=== PATIENT | female | born 1970 | race Caucasian/White ===

== ENCOUNTER 2018-02-07 19:10 | Emergency (ER) | payer OTHER ==
[~2018-02-07] VITALS: Ht 167.6 cm; Wt 72.6 kg
[2018-02-07] MEDS ORDERED: HYDROcodone/APAP 7.5 MG/325 MG (LORTAB, LORCET PLUS) TABLET PO STA (21:55)
[2018-02-07 22:52] LABS: BASOPHILS # (AUTO) 0.1 10^3/uL (0.0-0.1); BASOPHILS % (AUTO) 1 % (0-10); EOSINOPHILS # (AUTO) 0.4 10^3/uL (0.0-0.3); EOSINOPHILS % (AUTO) 4 % (0-10); HEMATOCRIT 42 % (35-52); HEMOGLOBIN 14.4 G/DL (11.5-16.0); LYMPHOCYTES # (AUTO) 4.6 X 10^3 (1.0-4.0); LYMPHOCYTES % (AUTO) 43 % (12-44); MEAN CORPUSCULAR HEMOGLOBIN 31 PG (25-34); MEAN CORPUSCULAR HGB CONC 35 G/DL (32-36); MEAN CORPUSCULAR VOLUME 90 FL (80-99); MEAN PLATELET VOLUME 10.4 FL (7.4-10.4); MONOCYTES % (AUTO) 9 % (0-12); NEUTROPHILS # (AUTO) 4.8 X 10^3 (1.8-7.8); NEUTROPHILS % (AUTO) 44 % (42-75); PLATELET COUNT 242 10^3/uL (130-400); RED BLOOD COUNT 4.65 10^6/uL (4.35-5.85); RED CELL DISTRIBUTION WIDTH 12.8 % (10.0-14.5); WHITE BLOOD COUNT 10.8 10^3/uL (4.3-11.0)
--- NOTE | 2018-02-07 23:05 | ED General ---
General Chief Complaint: General Problems/Pain Stated Complaint: BREAST PAIN Nursing Triage Note: c/o L breast pain x 2 days Nursing Sepsis Screen: No Definite Risk History of Present Illness Date Seen by Provider: Feb 07, 2018 Time Seen by Provider: 21:30 Initial Comments 47-year-old female reports since for left breast pain. She states the pain has been present for at least 3 days now. She has not had a mammogram for approximately 4-5 years. She slipped in [place] for the last year prior to that she lived in [facility]. 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 This was done approximately 5 years ago. She has no first-degree relatives with breast cancer. She has a [id number] smoking history. She does report a proximally 30- 40 pound weight loss over the last 6 months, however she does report going through a divorce. Timing/Duration: 3-4 Days Associated Systoms: No Chest Pain, No Cough, No Diaphoresis, No Fever/Chills, No Headaches, Loss of Appetite, No Nausea/Vomiting, No Seizure, No Shortness of Air, No Syncope, No Weakness Allergies and Home Medications Allergies Coded Allergies: No Known Drug Allergies (Unverified , 02/07/18) Patient Home Medication List Home Medication List Reviewed: Yes Constitutional: no symptoms reported, see HPI Respiratory: no symptoms reported, see HPI, No cough Skin: no symptoms reported, see HPI Psychiatric/Neurological: No Symptoms Reported, See HPI Hematologic/Lymphatic: See HPI, Swollen Glands (left axilla) Immunological/Allergic: no symptoms reported, see HPI All Other Systems Reviewed Negative Unless Noted: Yes Past Zlyrhuv-Bcjiky-Hraqyc Hx Patient Social History Alcohol Use: Denies Use Recreational Drug Use: No Smoking Status: Current Everyday Smoker Type Used: Cigarettes Recent Foreign Travel: No Contact w/Someone Who Travel: No Recent Infectious Disease Expo: No Recent Hopitalizations: No Surgeries History of Surgeries: Yes Surgeries: Section, Tubal Ligation Respiratory History of Respiratory Disorde: No Cardiovascular History of Cardiac Disorders: No Neurological History of Neurological Disord: No Genitourinary History of Genitourinary Disor: No Gastrointestinal History of Gastrointestinal Di: No Musculoskeletal History of Musculoskeletal Dis: No Endocrine History of Endocrine Disorders: No HEENT History of HEENT Disorders: No Cancer History of Cancer: Yes Cancer: Skin (over sternum) Psychosocial History of Psychiatric Problem: No Integumentary History of Skin or Integumenta: No Blood Transfusions History of Blood Disorders: No Reviewed Nursing Assessment Reviewed/Agree w Nursing PMH: Yes Family Medical History Significant Family History: Cancer (mother had melanoma) Physical Exam Vital Signs Vital Signs - First Documented 02/07/18 20:25 Temp 98.2 Pulse 75 Resp 18 B/P (MAP) 123/85 (98) Pulse Ox 98 Capillary Refill : Less Than 3 Seconds General Appearance: No Apparent Distress, WD/WN Eyes: Bilateral Eye Normal Inspection, Bilateral Eye PERRL, Bilateral Eye EOMI HEENT: PERRL/EOMI, TMs Normal, Normal ENT Inspection, Pharynx Normal Neck: Full Range of Motion, Normal Inspection, Non Tender, Supple Respiratory: Chest Non Tender, Lungs Clear, Normal Breath Sounds Cardiovascular: Regular Rate, Rhythm, No Edema, No Murmur, Normal Peripheral Pulses Gastrointestinal: Normal Bowel Sounds, Non Tender, Soft Extremity: Normal Capillary Refill, Normal Inspection, Normal Range of Motion, Non Tender, No Pedal Edema Neurologic/Psychiatric: Alert, Oriented x3, No Motor/Sensory Deficits, Normal Mood/Affect Skin: Normal Color, Warm/Dry Comments firm, tender mass noted in upper left breast, 11:00-1:00 and extended to nipple , no skin retractions, color changes or dimpling. Nipple is firm and protruding with no retractions. Mass is mobile. She has lymphadenopathy in the left axilla but reports having surgery here after her son was born for an infection and it has always been swollen. Progress/Results/Core Measures Suspected Sepsis Recent Fever Within 48 Hours: No Infection Criteria Present: None New/Unexplained Altered Menta: No Sepsis Screen: No Definite Risk Sepsis Diagnosis: SIRS Temperature:98.2 Pulse: 75 Respiratory Rate: 18 Laboratory Tests 02/07/18 22:40: White Blood Count 10.8 Blood Pressure 123 /85 Mean: 98 Laboratory Tests 02/07/18 22:40: Creatinine 0.66, Platelet Count 242, Total Bilirubin 0.3 Results/Orders Lab Results Laboratory Tests Test 02/07/18 22:40 Range/Units White Blood Count 10.8 4.3-11.0 10^3/uL Red Blood Count 4.65 4.35-5.85 10^6/uL Hemoglobin 14.4 11.5-16.0 G/DL Hematocrit 42 35-52 % Mean Corpuscular Volume 90 80-99 FL Mean Corpuscular Hemoglobin 31 25-34 PG Mean Corpuscular Hemoglobin Concent 35 32-36 G/DL Red Cell Distribution Width 12.8 10.0-14.5 % Platelet Count 242 130-400 10^3/uL Mean Platelet Volume 10.4 7.4-10.4 FL Neutrophils (%) (Auto) 44 42-75 % Lymphocytes (%) (Auto) 43 12-44 % Monocytes (%) (Auto) 9 0-12 % Eosinophils (%) (Auto) 4 0-10 % Basophils (%) (Auto) 1 0-10 % Neutrophils # (Auto) 4.8 1.8-7.8 X 10^3 Lymphocytes # (Auto) 4.6 H 1.0-4.0 X 10^3 Monocytes # (Auto) 1.0 0.0-1.0 X 10^3 Eosinophils # (Auto) 0.4 H 0.0-0.3 10^3/uL Basophils # (Auto) 0.1 0.0-0.1 10^3/uL Sodium Level 141 135-145 MMOL/L Potassium Level 3.7 3.6-5.0 MMOL/L Chloride Level 109 H 98-107 MMOL/L Carbon Dioxide Level 23 21-32 MMOL/L Anion Gap 9 5-14 MMOL/L Blood Urea Nitrogen 19 H 7-18 MG/DL Creatinine 0.66 0.60-1.30 MG/DL Estimat Glomerular Filtration Rate > 60 BUN/Creatinine Ratio 29 Glucose Level 84 70-105 MG/DL Calcium Level 9.2 8.5-10.1 MG/DL Total Bilirubin 0.3 0.1-1.0 MG/DL Aspartate Amino Transf (AST/SGOT) 21 5-34 U/L Alanine Aminotransferase (ALT/SGPT) 23 0-55 U/L Alkaline Phosphatase 56 40-136 U/L C-Reactive Protein High Sensitivity 0.18 0.00-0.50 MG/DL Total Protein 6.5 6.4-8.2 GM/DL Albumin 4.2 3.2-4.5 GM/DL My Orders Orders - MAHENDRA [employer]CA[employer] Hydrocodone/Apap 7.5/325 Tab (Lortab 7. (02/07/18 21:55) Cbc With Automated Diff (02/07/18 22:14) Comprehensive Metabolic Panel (02/07/18 22:14) Saline Lock/Iv-Start (02/07/18 22:14) Ct Chest/Abdomen/Pelvis W (02/07/18 22:16) Iohexol Injection (Omnipaque 350 Mg/Ml 1 (02/07/18 23:45) Ns (Ivpb) (Sodium Chloride 0.9%) (02/07/18 23:45) Hs C Reactive Protein (02/07/18 23:52) Ketorolac Injection (Toradol Injection) (02/08/18 00:00) Medications Given in ED Current Medications Medications Dose Ordered Sig/Gentry Route Start Time Stop Time Status Last Admin Dose Admin Iohexol 100 ml ONCE ONCE IV 02/07/18 23:45 02/07/18 23:46 DC 02/07/18 23:46 100 ML Sodium Chloride 250 ml ONCE ONCE IV 02/07/18 23:45 02/07/18 23:46 DC 02/07/18 23:46 80 ML Vital Signs/I&O Vital Sign - Last 12Hours 02/07/18 20:25 Temp 98.2 Pulse 75 Resp 18 B/P (MAP) 123/85 (98) Pulse Ox 98 Capillary Refill : Less Than 3 Seconds Blood Pressure Mean: 98 Progress Note : Time: 21:30 Progress Note Initial evaluation completed, as the findings in the breast and the risk for breast cancer. She is rating the left breast pain to be 9/10. With her history of melanoma and smoking will discuss this with Dr. Mcconnell. She does not have a healthcare provider in [facility]. We will obtain labs and give hydrocodone for pain. Discussed findings with Dr. Layne, he agreed with this treatment plan. [address] Mcconnell per phone recommended CT chest, abdomen and pelvis. Referral to surgeon on Friday for evaluation. Scheduled for biopsies and bone scan early next week. She can follow-up with oncology after biopsies. [address] Marsh phone, he agreed to see patient on Friday, she is to call his office for appointment in the afternoon. [address] All questions answered with patient. [address] continuing to have left breast pain, will give Toradol [address] results received by stat read, no acute findings noted. The CT results were discussed with the patient, discharge planning and return precautions reviewed with her. Follow-up with Dr. Marsh on Friday. Diagnostic Imaging Diagonstic Imaging: CT Plain Films/CT/US/NM/MRI: chest, abdomen, pelvis Comments Per Stat Rad no acute findings. Reviewed: Reviewed by Me, Reviewed/Discussed (with Dr. Marsh, mass noted to left medial breast. ) Departure Impression Impression: Primary Impression: Left breast mass Additional Impression: Mastalgia Disposition: HOME, SELF-CARE Condition: Stable Departure-Patient Inst. Decision time for Depature: 23:55 Patient Instructions: Mastalgia (DC) Add. Discharge Instructions: Call Dr. Marsh's office on Friday morning [phone] for appointment Friday. You may use ibuprofen 600 mg and Tylenol 650 mg alternating every 4 hours for pain. Warm moist compresses to left breast for pain. Return to emergency department for new problems or concerns. All discharge instructions reviewed with patient and/or family. Voiced understanding. Copy Copies To 1: ELÍAS MARSH DO Copies To 2: ILSA CROW AMY ARNP Feb 07, 2018 23:05
[2018-02-07 23:11] LABS: ALANINE AMINOTRANSFERASE 23 U/L (0-55); ALBUMIN 4.2 GM/DL (3.2-4.5); ALKALINE PHOSPHATASE 56 U/L (40-136); BILIRUBIN,TOTAL 0.3 MG/DL (0.1-1.0); BUN/CREATININE RATIO 29; CALCIUM 9.2 MG/DL (8.5-10.1); CARBON DIOXIDE 23 MMOL/L (21-32); CHLORIDE 109 MMOL/L (98-107); CREATININE SERUM 0.66 MG/DL (0.60-1.30); GFR ESTIMATED > 60; GLUCOSE 84 MG/DL (70-105); POTASSIUM 3.7 MMOL/L (3.6-5.0); SODIUM 141 MMOL/L (135-145); TOTAL PROTEIN 6.5 GM/DL (6.4-8.2)
[2018-02-07] MEDS ORDERED: IOHEXOL 350 MG/ML 100 ML (OMNIPAQUE 350) VIAL IV ONE (23:45)
[2018-02-07] MEDS ORDERED: NS 250 ML (IVPB) BAG IV ONE (23:45)
[2018-02-08] MEDS ORDERED: KETOROLAC 30 MG/ML VIAL IVP STA
[2018-02-08 00:42] VITALS: BP 0/0
--- OUTSIDE RECORDS SUMMARY | 2018-02-08 05:07 | XMS REPORT | Continuity of Care Document ---
Author Author [facility] Organization [facility] Address Unknown Phone Unavailable Allergies Active Description Code Type Severity Reaction Onset Reported/Identified Relationship to Patient Clinical Status Yes MDX - No Known Drug Allergies - Nkd [id number] Drug Allergy Unknown N/A 2014 Yes No Known Drug Allergies - Nkda [id number] Drug Allergy Unknown N/A 2014 Medications There is no data. Problems Date Dx Coded Attending Type Code Diagnosis Diagnosed By 03/01/2015 SHARI SANCHEZ 913.5 INSECT BITE FOREARM-INF 03/01/2015 SHARI SANCHEZ E849.[address] NOS 03/01/2015 SHARI SANCHEZ E906.4 NONVENOM ARTHROPOD BITE 04/21/2015 Ramiro Jacobs W 276.50 VOLUME DEPLETION, UNSPECIFIED 04/21/2015 Reynaldo Ramiro W 787.03 VOMITING ALONE 04/21/2015 Ramiro Jacobs A 789.00 ABDOMINAL PAIN, UNSPECIFIED SITE 04/21/2015 Ramiro Jacobs W 789.06 ABDOMINAL PAIN, EPIGASTRIC Procedures There is no data. Results There is no data. Encounters ACCT No. Visit Date/Time Discharge Status Pt. Type Provider Facility Loc./Unit Complaint [id number] 04/21/2015 13:41:00 04/21/2015 16:05:00 DIS Emergency Ramiro Jacobs [facility] COL.ER [id number] 03/01/2015 07:24:00 03/01/2015 07:50:00 DIS Emergency SHARI SANCHEZ [facility] COL[facility]ER
--- OUTSIDE RECORDS SUMMARY | 2018-02-08 05:07 | XMS REPORT | Continuity of Care Document ---
Author Author [facility]. Organization [facility]. Address [address] [place] [address] Phone Unavailable Care Team Providers Care Campaign Marketing Specialist Name Role Phone LaceyMaggiera Unavailable Insurance Providers Payer Name Policy Number Subscriber Name Relationship Self-Pay Self-Pay MICHA FONSECA Self Advance Directives Directive Response Recorded Date/Time Advance Directives: Unknown 04/21/15 1:36pm Chief Complaint and Reason for Visit Reason for Visit Vomiting Abdominal pain Problems Medical Problems Problem Onset Date Status Epigastric pain Unknown Active Tick bite 03/01/15 Active Cellulitis 03/01/15 Active Vomiting Unknown Active Abdominal pain Unknown Active Medications Medication Dose Route Sig Days/Qty Instructions Order Date Discontinued Date Status No Home Medications EA 08/06/09 Discontinued Codeine Phosphate/Apap (Tylenol #3) 300 MG/30 MG TABLET 0 ORAL 08/06/09 Discontinued Amoxicillin (Amoxil*) 500 MG CAPSULE 500 MG ORAL Three times daily 08/06/09 Discontinued HYDROcodone/Acetaminophen (Lortab) 5 MG/500 MG TABLET 0 TAB NEEDED FOR PAIN 03/17/13 Discontinued Clindamycin Hydrochloride (Clindamycin) 150 MG CAP 0 ORAL Twice daily 03/17/13 Discontinued Metronidazole (Metronidazole 500MG) 500 MG TAB 0 ORAL Three times daily 03/17/13 Discontinued No Home Medications EA Active Amoxicillin (Amoxil*) 500 MG CAPSULE 500 MG ORAL Three times daily 30 Qty 08/05/09 08/06/09 Discontinued Codeine Phosphate/Apap (Tylenol #3) 300 MG/30 MG TABLET 1 UDTAB ORAL Every 4 -6 hours as needed 20 Qty 08/05/09 08/06/09 Discontinued Esomeprazole Magnesium (NexIUM) 20 MG CAPSULE.DR 20 MG ORAL Twice daily 14 Days 03/17/13 03/01/15 Discontinued Sucralfate (Carafate) 1 G TABLET 1 TAB ORAL 3x daily before meals & at bed 14 Days 03/17/13 03/01/15 Discontinued HYDROcodone/Acetaminophen (Schneider) 5 MG/325 MG TABLET 1-2 TAB ORAL Every 4-6 hours as needed 20 Qty NEEDED FOR PAIN 03/17/13 03/01/15 Discontinued Doxycycline Hyclate (Vibramycin *) 100 MG CAPSULE 100 MG ORAL Twice daily 20 Qty 03/01/15 04/21/15 Discontinued Ondansetron (Zofran) 8 MG TABLET 8 MG ORAL Every six hours as needed PRN nausea 30 Qty 1 po q6 hours prn for nausea 04/21/15 Active traMADol (Ultram *) 50 MG TABLET 50 MG ORAL Every six hours as needed PRN pain 30 Qty 1-2 tb po q6 hours prn for severe pain 04/21/15 Active Omeprazole (Prilosec) 40 MG CAPSULE 40 MG ORAL Once daily PRN acid 10 Qty 04/21/15 Active Family History Relationship Name Date of Condition Age ( At Onset ) Cause of Age ( At ) Age Gender Recorded Date/Time Family history of cardiovascular disease Unknown 1346 Family history of ischemic heart disease or other disease of circulatory system Unknown 04/21/15 1346 Social History Query Response Start Date Stop Date Smoking status: Current every day smoker Hospital Discharge Instructions No hospital discharge instructions. Plan of Care Discharge Date 04/21/15 4:05pm Disposition HOME, SELF-CARE or ASST LIVING Condition at Discharge Stable Instructions/Education Provided Omeprazole (By mouth) Tramadol (By mouth) Ondansetron (By mouth, Into the mouth) Acute Nausea and Vomiting (ED) Abdominal Pain (ED) Forms Provided Work Release Prescriptions See Medications Section Referrals One Week Talita Rahman Additional Instructions/Education Prilosec as described, tramdol for severe pain, tylenol for mild pain. Zofran for nausea. Return if progressive pain, concerns of any type. Follow up within 1 week with primary care provider Some of your test results may not be complete prior to your leaving the Emergency Department. The Emergency Department is not authorized to give test results over the phone. Please contact the doctor's office listed on form for your final results. Follow up with your primary care physician or return to the Emergency Department for worsening or worrisome symptoms. * Emergency Department phone number: [phone] MEDICAL RECORD If you need copies of your X-rays, call [phone]. If you need copies of your medical record, including lab results, a signed authorization for release of records will be required. A telephone call for release of Health Information is not allowed. BILLING Billing can sometimes be confusing and frustrating. To help avoid confusion in the future, please take a moment to acquaint yourself with the billing parties for services. SERVICE BILLING LIBERTARIAN Emergency Room Services [facility]. Physician Services [facility] Resources X-rays [facility] Patients will receive bills for services from the appropriate provider. If have any questions about your [facility] bill, our staff will be happy to assist you. Please call [phone] and ask for the billing department. THANK YOU for choosing [facility] as your emergency care provider. Care Plan and Goals ~~Discharge Care Plan~~ Problem: Abdominal pain Goal: Decreased level of pain. Return to usual activities. Instructions: Take medication(s) as directed; follow up with primary care physician as directed; follow patient home care instructions. Functional Status No functional status results. Allergies, Adverse Reactions, Alerts Allergen Type Severity Reaction Status Last Updated No Known Drug Allergies - Nkda Allergy Unknown Active 04/21/15 Immunizations No Known History of Immunizations. Vital Signs Vital Reading Collection Date/Time Result Blood Pressure 04/21/15 4:07pm 115/78 Blood Pressure Source 04/21/15 1:36pm SI Patient Temperature 04/21/15 1:36pm 97.2 Respiratory Rate 04/21/15 4:07pm 16 Pulse Rate 04/21/15 4:07pm 69 Pulse Location 04/21/15 1:36pm PO Bedside Pulse Oximetry 04/21/15 4:07pm 99 Height 04/21/15 1:36pm 167.6 cm Height 04/21/15 1:36pm 5 ft 06 in Weight 04/21/15 1:36pm 81.8 kg Weight 04/21/15 1:36pm 180.0 lb Body Mass Index 04/21/15 1:36pm 29.1 Procedures No Known History of Procedures. Results Test Source Date Result Interp. Ref. Range Comments Basophils # 04/21/15 0.1 0.0 - 0.2 Basophils % 04/21/15 1.3 % 0.0 - 2.0 Eosinophils # 04/21/15 0.5 0.0 - 0.7 Eosinophils % 04/21/15 5.2 % H 0 - 4.0 Granulocytes # 04/21/15 4.0 1.4 - 6.5 Granulocytes (%) 04/21/15 43.8 % 42.2 - 75.2 Hematocrit 04/21/15 47.0 % 37.0 - 47.0 Hemoglobin 04/21/15 15.6 g/dl 12.5 - 16.0 Lymphocytes # 04/21/15 3.7 H 1.2 - 3.4 Lymphocytes % 04/21/15 41.1 % 20.0 - 51.0 Mean Corpuscular Hemoglobin 04/21/15 30 pg 27.0 - 31.0 Mean Corpuscular Hemoglobin Concent 04/21/15 33 g/dl L 33.0 - 37.0 Mean Corpuscular Volume 04/21/15 90 fl 80.0 - 100.0 Mean Platelet Volume 04/21/15 10.8 fl H 7.4 - 10.4 Monocytes # 04/21/15 0.8 H 0.1 - 0.6 Monocytes % 04/21/15 8.3 % 1.7 - 9.3 Platelet Count 04/21/15 270 K/mm3 130 - 400 Red Blood Count 04/21/15 5.22 M/mm3 4.10 - 5.30 Red Cell Distribution Width 04/21/15 12.9 % 11.5 - 14.5 White Blood Count 04/21/15 9.1 K/mm3 4.8 - 10.8 Helicobacter pylori IgG Antibody 04/21/15 NEGATIVE - Alanine Aminotransferase (ALT/SGPT) 04/21/15 39 U/L 9 - 52 Albumin 04/21/15 4.5 gm/dL 3.5 - 5.0 Alkaline Phosphatase 04/21/15 71 U/L 50 - 136 Anion Gap 04/21/15 12 mmol/L 7 - 16 Aspartate Amino Transf (AST/SGOT) 04/21/15 33 U/L 15 - 37 Blood Urea Nitrogen 04/21/15 11 mg/dL 7 - 17 Calcium Adjusted for Albumin 04/21/15 9.3 mg/dL 8.4 - 10.2 Calcium Level 04/21/15 9.7 mg/dL 8.4 - 10.2 Carbon Dioxide Level 04/21/15 30 mmol/L 22 - 30 Chloride Level 04/21/15 103 mmol/L 98 - 107 Creatinine 04/21/15 0.75 mg/dL 0.52 - 1.04 Estimated GFR () 04/21/15 102 - Estimated GFR (Non- 04/21/15 84 - Glucose Level 04/21/15 98 mg/dL 74 - 106 Lipase 04/21/15 72 U/L 23 - 300 Potassium Level 04/21/15 3.8 mmol/L 3.4 - 5.0 Serum Total Protein 04/21/15 8.0 gm/dL 6.4 - 8.2 Sodium Level 04/21/15 146 mmol/L H 137 - 145 Total Bilirubin 04/21/15 0.4 mg/dL 0.0 - 1.0 Encounters Encounter Location Date/Time Departed Emergency [facility] 04/21/15 4:05pm Recent Diagnosis Vomiting Abdominal pain
--- NOTE | 2018-02-08 07:19 | Diagnostic Imaging Report ---
PROCEDURE: CT chest, abdomen, and pelvis with contrast. TECHNIQUE: Multiple contiguous axial images were obtained through the chest, abdomen, and pelvis after the administration of intravenous contrast. INDICATION: Chest pain and palpable abnormality in the left breast. Patient has personal history of melanoma. There is no previous study for comparison. FINDINGS: There is mosaic groundglass appearance to the lungs bilaterally which may be due to pneumonitis or possible areas of air trapping. There is no evidence of dominant mass or infiltrate. No pleural or pericardial fluid is identified. There are multiple calcified lymph nodes involving the mediastinum and left hilum without noncalcified pathologic adenopathy. There is mild thoracic spondylosis without other osseous abnormality identified. There is no definite lesion seen in the breasts. IMPRESSION: Mosaic lung attenuation may represent pneumonitis, air trapping or small airway disease. Clinical correlation would be of use. No discrete lesion is seen in the left breast although consideration should be given to mammography for further assessment. CT abdomen and pelvis: No focal hepatic abnormality is identified. There are multiple calcified granuloma seen within the spleen. Gallbladder, pancreas and adrenal glands are unremarkable in appearance. Kidneys have a normal appearance. There is no evidence of hydronephrosis. No free fluid is seen in the abdomen or pelvis. Partially opacified urinary bladder is unremarkable. There is no evidence of localized inflammation or organized fluid collection. There is moderate L3-L4, L4-L5 and L5-S1 degenerative disc disease. IMPRESSION: No acute abnormality is seen in the abdomen or pelvis. There is no evidence of mass or pathologically enlarged adenopathy. Dictated by: Dictated on workstation # [id number]
[2018-02-08] MEDS ORDERED: KETO10TA PO (18:35)
[2018-02-08] MEDS ORDERED: ACHD5005 PO (18:35)
== END 2018-02-08 00:42 | disposition home or self-care (01) ==
LOC: ER 19:13
DX: N63.20 Unspecified lump in the left breast, unspecified quadrant (principal); F17.210 Nicotine dependence, cigarettes, uncomplicated; Z87.59 Personal history of other complications of pregnancy, childbirth and the puerperium; Z98.51 Tubal ligation status; Z80.8 Family history of malignant neoplasm of other organs or systems
CPT/HCPCS: 36415; 71260; 74177; 80053; 85025; 86141; 96374

== ENCOUNTER 2018-02-08 17:12 | Emergency (ER) | payer OTHER ==
[~2018-02-08] VITALS: Ht 167.6 cm; Wt 72.6 kg
--- OUTSIDE RECORDS SUMMARY | 2018-02-08 17:18 | XMS REPORT | Continuity of Care Document ---
Author Author [facility] Organization [facility] Address Unknown Phone Unavailable Allergies Active Description Code Type Severity Reaction Onset Reported/Identified Relationship to Patient Clinical Status Yes MDX - No Known Drug Allergies - Nkd [id number] Drug Allergy Unknown N/A 2014 Yes No Known Drug Allergies - Nkda [id number] Drug Allergy Unknown N/A 2014 Medications There [...] Status Pt. Type Provider Facility Loc./Unit Complaint [id number] 04/21/2015 13:41:00 04/21/2015 16:05:00 DIS Emergency Ramiro Jacobs [facility] COL.ER [id number] 03/01/2015 07:24:00 03/01/2015 07:50:00 DIS Emergency SHARI SANCHEZ [facility]
--- NOTE | 2018-02-08 18:25 | ED Chest Pain ---
General Chief Complaint: General Problems/Pain Stated Complaint: L BREAST DISCOMFORT Source: patient, family Exam Limitations: no limitations History of Present Illness Date Seen by Provider: Feb 08, 2018 Time Seen by Provider: 18:15 Initial Comments Patient presents to ER by private conveyance with a chief complaint she was seen yesterday for a 3-day-old left breast lump with redness swelling and pain without discharge. She's had no nausea but she has had some chills without fever. She says the workup yesterday included a CT scans and ultrasound was unavailable and some pain medicine as well as an "inflammation by IV". She says her pain is not been managed and she has a planned follow-up with a surgeon outpatient tomorrow that she would like something for her pain today. Says the hydrocodone did not help yesterday but the infusion by IV did help. Allergies and Home Medications Allergies Coded Allergies: No Known Drug Allergies (Unverified , 02/07/18) Patient Home Medication List Home Medication List Reviewed: Yes Review of Systems Constitutional: No chills, No diaphoresis EENTM: No Blurred Vision, No Double Vision Respiratory: Denies Cough, Denies Shortness of Air Cardiovascular: See HPI Gastrointestinal: Denies Abdomen Distended, Denies Abdominal Pain, Denies Nausea, Poor Fluid Intake Genitourinary: Denies Burning, Denies Discharge Musculoskeletal: No back pain, No joint pain Skin: No pruritus, No rash Psychiatric/Neurological: Denies Headache, Denies Numbness Past Hlmooqd-Qayfif-Gwduod Hx Patient Social History Alcohol Use: Denies Use Recreational Drug Use: No Smoking Status: Current Everyday Smoker Type Used: Cigarettes Recent Hopitalizations: No Surgeries History of Surgeries: Yes Surgeries: Section, Tubal Ligation Respiratory History of Respiratory Disorde: No Cardiovascular History of Cardiac Disorders: No Neurological History of Neurological Disord: No Genitourinary History of Genitourinary Disor: No Gastrointestinal History of Gastrointestinal Di: No Musculoskeletal History of Musculoskeletal Dis: No Endocrine History of Endocrine Disorders: No HEENT History of HEENT Disorders: No Cancer History of Cancer: Yes Cancer: Skin Psychosocial History of Psychiatric Problem: No Integumentary History of Skin or Integumenta: No Blood Transfusions History of Blood Disorders: No Family Medical History Significant Family History: Cancer Physical Exam Vital Signs Capillary Refill : General Appearance: WD/WN, Mild Distress HEENT: PERRL/EOMI, Pharynx Normal Neck: Full Range of Motion, Supple Respiratory: No Accessory Muscle Use, No Respiratory Distress Cardiovascular: Regular Rate, Rhythm, No Edema, No Gallop Neurologic/Psychiatric: Alert, Oriented x3 Skin: Normal Color, Warm/Dry Progress/Results/Core Measures Progress Note : Time: 18:25 Progress Note Review of the report from last night demonstrates pain for 3 days with no mammogram for the past 4-5 years. 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 30- pack-year smoking history and approximately a 30-40 pound weight loss over the last 6 months although she says she is going through divorce. Patient was given ketorolac. We will plan to give her some IM ketorolac as well as a prescription for ketorolac and take home hydrocodone. Departure Impression Impression: Primary Impression: Breast pain in female Disposition: 01 HOME, SELF-CARE Condition: Stable Departure-Patient Inst. Decision time for Depature: 18:30 Referrals: NO,LOCAL PHYSICIAN (PCP) Primary Care Physician Patient Instructions: Breast Biopsy (DC) Add. Discharge Instructions: Keep your follow-up appointment by calling Dr. Sinha's office at [phone] in the morning and request an appointment to follow-up in your left breast mass. 6 hours after you received your shot you may take another 800 mg of ibuprofen. You can also use either the hydrocodone or the equivalent of 1000 mg of Tylenol/ acetaminophen every 8 hours for pain. You can also use warm compresses directly over the painful spot. Ketorolac has been sent to the pharmacy for supply chain tech tomorrow and you may take one tablet every 8 hours for the next 3 days as needed for pain. All discharge instructions reviewed with patient and/or family. Voiced understanding. Scripts Hydrocodone Bit/Acetaminophen (Hydrocodone/Acetaminophen 5/325mg Tablet) 1 Tab Tab 1-2 EACH PO Q6H Y for BREAKTHROUGH PAIN, #15 TAB 0 Refills Prov: NADIRA PRATT 02/08/18 Ketorolac Tromethamine (Ketorolac Tromethamine) 10 Mg Tablet 10 MG PO Q8H for Pain for 3 Days, #9 TAB 0 Refills Prov: NADIRA PRATT 02/08/18 Copy Copies To 1: ELÍAS SINHA DO NADIRA PRATT J Feb 08, 2018 18:24
[2018-02-08] MEDS ORDERED: ACHD5005 PO (18:35)
[2018-02-08] MEDS ORDERED: KETO10TA PO (18:35)
[2018-02-08] MEDS ORDERED: RX-HYDROCODONE/APAP 5/325 MG #4 TAB PK PO ONE (18:37)
[2018-02-08] MEDS ORDERED: KETOROLAC 30 MG/ML VIAL ONE (18:37)
[2018-02-08] MEDS ORDERED: RX-HYDROCODONE/APAP 5/325 MG #4 TAB PK PO PRN (18:45)
[2018-02-08] MEDS ORDERED: KETOROLAC 30 MG/ML VIAL IM ONE (18:45)
[2018-02-08 18:46] VITALS: BP 154/84
== END 2018-02-08 18:45 | disposition home or self-care (01) ==
LOC: EDUNIT# 17:12 → ER 17:14
DX: N64.4 Mastodynia (principal); F17.210 Nicotine dependence, cigarettes, uncomplicated; Z87.59 Personal history of other complications of pregnancy, childbirth and the puerperium; Z98.51 Tubal ligation status; Z85.828 Personal history of other malignant neoplasm of skin
CPT/HCPCS: 96372; 99284

== ENCOUNTER → 2018-02-09 | Outpatient (CLI) | payer OTHER ==
[~2018-02-09] MED LIST: ACHD5005 PO; KETO10TA PO
--- NOTE | 2018-02-09 18:28 | Diagnostic Imaging Report ---
INDICATION: Left breast pain. TECHNIQUE: Multiple real-time grayscale images were obtained throughout the left breast in all 4 quadrants. FINDINGS: There is no evidence of a discrete solid or cystic mass. Underlying fibroglandular tissue appears somewhat edematous. The possibility of a mastitis cannot be excluded. IMPRESSION: Category 3, probably benign. No discrete solid or cystic mass. There does appear to be some inflammation in the fibroglandular tissue, possibly reflecting mastitis. Recommend clinical correlation and followup imaging, as warranted. Dictated by: Dictated on workstation # [id number]
== END ==
LOC: RAD 15:14
PROVIDERS: ATTEND Surgery
DX: N64.4 Mastodynia (principal)
CPT/HCPCS: 76641

== ENCOUNTER → 2018-02-10 | Outpatient (CLI) | payer OTHER ==
--- NOTE | 2018-02-10 13:27 | Diagnostic Imaging Report ---
INDICATION: Breast pain. COMPARISON: 05/16/2015 and 03/16/2012. TECHNIQUE: Digital diagnostic mammography was performed bilaterally with a Computer Aided Detection (CAD) system. FINDINGS: There is moderately dense fibroglandular tissue bilaterally, left greater than right. There are a few benign type calcifications. There is no discrete mass, spiculated lesion, or suspicious calcification identified. There appears to be some mild skin thickening on the left. The nipples and axillae are unremarkable. IMPRESSION: Questionable skin thickening on the left. By history, this is related to possible mastitis. This may also account for the slight increased density in the left fibroglandular tissue with respect to the right. Recommend clinical correlation and short interval followup imaging as clinically warranted. ACR BI-RADS Category 3: Probably benign findings. Result letter will be mailed to the patient. Note: At least 10% of breast cancer is not imaged by mammography. Dictated by: Dictated on workstation # [id number]
== END ==
LOC: RAD 08:26
PROVIDERS: ATTEND Surgery
DX: N63.20 Unspecified lump in the left breast, unspecified quadrant (principal)
CPT/HCPCS: 77066

== ENCOUNTER → 2018-02-25 | Outpatient (CLI) | payer SELFPAY ==
--- NOTE | 2018-02-25 11:38 | Diagnostic Imaging Report ---
INDICATION: Left breast palpable abnormality. COMPARISON: 02/09/2018. TECHNIQUE: Sonographic interrogation of the area of palpable abnormality in the medial left breast was performed. FINDINGS: No discrete mass is identified. There is some mild parenchymal heterogeneity. No abnormal vascularity is present. The overall appearance is similar to the examination from 02/09/2018. IMPRESSION: No distinct sonographic abnormality is identified. The patient does report that her left breast is significantly improved when compared with 2 weeks earlier. At that time, the breast was markedly swollen and demonstrated redness. The patient has been on antibiotics since that time with significant improvement. In addition, the patient underwent a skin punch biopsy which reportedly was negative. The findings were discussed with the patient. For better characterization, it was determined that the patient should undergo breast MRI to further evaluate the area of significant firmness in the medial aspect of the left breast prior to undergoing tissue sampling. The patient was in agreement. The patient will be scheduled for breast MRI. ACR BI-RADS Category 0: Incomplete. (Needs additional imaging evaluation). Result letter will be mailed to the patient. Note: At least 10% of breast cancer is not imaged by mammography. Dictated by: Dictated on workstation # [id number]
== END ==
LOC: RAD 09:26
PROVIDERS: ATTEND Surgery
DX: N63.20 Unspecified lump in the left breast, unspecified quadrant (principal)
CPT/HCPCS: 76641

== ENCOUNTER → 2018-03-13 | Outpatient (CLI) | payer OTHER ==
[~2018-03-13] MED LIST changes: +GADOBUTROL 7.5 MMOL/7.5 ML (GADAVIST) VIAL IV ONE
--- NOTE | 2018-03-16 19:09 | Diagnostic Imaging Report ---
INDICATION: Lump and left breast pain. Followup abnormal ultrasound. History for the recent breast ultrasound describes prior swelling and redness which has improved. There has been a course of antibiotic therapy as well. Reportedly, there has been a benign breast biopsy. COMPARISON: Left breast ultrasound dated 02/25/2018 TECHNIQUE: Utilizing 1.5 Megan GE magnet, patient was placed in a prone position with 8-channel dual breast coil utilized. Axial STIR precontrasted image and axial T1 fat-sat postcontrast high-resolution images obtained. Sagittal T2-weighted images precontrast, bilaterally, as well. Sagittal vibrant temporal images were obtained pre and post contrast with bolus technique utilized of gadolinium. Images are postcontrast immediately and subsequently for 7 minutes. Pre and post contrasted images are then evaluated with [employer] for evaluation of possible angiogenesis. FINDINGS: MR images of the right breast are unremarkable without enhancing mass or significant background enhancement. On the left, there is mild diffuse thickening of the skin and there is some stromal edema as well as somewhat diffuse enhancement through the left breast. There is a more focal slightly ill-defined 1.8 cm x 2 cm x 1.5 cm heterogeneous mass like lesion with moderate thick ringlike enhancement seen just medial to the nipple in the mid anterior left breast at about 9 o'clock. There is some diffuse ill-defined non-masslike enhancement surrounding this lesion and extending anterior to the nipple. The overall appearance is most suggestive of possibly a resolving abscess with underlying mastitis given the clinical history, however, neoplasm would be difficult to entirely exclude and short-term followup MR in 3-6 months is recommended. No additional mass or abnormalities seen on the left. There are a few enhancing lymph nodes in the axilla which are probably reactive. IMPRESSION: 1. The MR appearance of the left breast is abnormal. There is diffuse skin thickening and there is overall moderately diffuse non-masslike enhancement in the left breast more focal in the anterior medial quadrate surrounding a ring-enhancing 2 cm lesion as described. The overall appearance could be consistent with resolving abscess/mastitis given the clinical history. However neoplasm would be difficult to entirely exclude. Findings are probably benign and followup breast MR in 3-6 months is suggested. If clinical findings are not compatible with abscess/mastitis biopsy may be warranted. 2. There is no MR abnormality of the right breast. ACR BI-RAD category 3, six-month followup recommended Dictated by: Dictated on workstation # [id number]
== END ==
LOC: RAD 15:58
PROVIDERS: ATTEND Surgery
DX: N63.20 Unspecified lump in the left breast, unspecified quadrant (principal)
CPT/HCPCS: 77059

== ENCOUNTER 2020-06-09 05:40 | Outpatient (RCR) | payer BC, OTHER ==
[~2020-06-09] VITALS: Ht 167 cm; Wt 75.0 kg
[~2020-06-09 05:40] MED LIST changes: -GADOBUTROL 7.5 MMOL/7.5 ML (GADAVIST) VIAL IV ONE
[2020-06-09] MEDS ORDERED: PANT40TA3 PO (09:55)
== END 2020-06-09 10:01 | disposition home or self-care (01) ==
LOC: PREOP 05:40
PROVIDERS: ATTEND Surgery
DX: Z01.812 Encounter for preprocedural laboratory examination (principal); Z20.828 Contact with and (suspected) exposure to other viral communicable diseases
CPT/HCPCS: 87635

== ENCOUNTER 2020-06-12 08:47 | Day surgery (SDC) | payer BC, OTHER ==
[2020-06-12] VITALS (7 sets, daily range): BP systolic 111–129; BP diastolic 67–87
[~2020-06-12] VITALS: Ht 167.7 cm; Wt 75.0 kg
[~2020-06-12 08:47] MED LIST changes: +PANT40TA3 PO
--- OUTSIDE RECORDS SUMMARY | 2020-06-12 09:00 | XMS REPORT | Continuity of Care Document ---
Author Organization Unknown Address Unknown Phone Unavailable Allergies Active Description Code Type Severity Reaction Onset Reported/Identified Relationship to Patient Clinical Status Yes FLAGYL MODERATE MODERATE Yes NO KNOWN DRUG ALLERGIES UNKNOWN UNKNOWN Yes MDX - No Known Drug Allergies - Nkd X2 5061 Drug Allergy Unknown N/A 015 Yes No Known Drug Allergies - Nkda [id number] Drug Allergy Unknown N/A 04/21/2015 Yes No Known Drug Allergies [id number] Drug Allergy Unknown N/A 06/09/2020 Medications Medication Packaging Start Date St op Date Route Dosage Sig DICYCLOMINE 2CC AMP INJ 10 M G/CC (BENTYL 2CC AMP) MG 06/02/2020 06/02/2020 ONCE&0900 NORMAL SALINE 1000CC IV BAG INJ 0.9 % (NS 1000CC IV BAG) ml 06/02/2020 06/02/2020 ONCE&0935 FAMOTIDINE VIAL INJ 20 MG/2CC (PEPCID VIAL ) MG 06/05/2020 06/05/2020 ONCE&1658 DIPHENHYDRAMINE VIAL INJ 50 MG/CC (BENADRYL VIAL) MG 06/05/2020 06/05/2020 ONCE&1658 METHYLPREDNISOLONE VIAL INJ 125 MG/2CC (SOLU-MEDROL VIAL) MG 06/05/2020 06/05/2020 ONCE&1658 Problems Date Dx Coded Attending Type Code Diagnosis Diagnosed By 03/01/2015 SHARI SANCHEZ 913.5 INSECT BITE FOREARM-INF 03/01/2015 SHARI SANCHEZ E849.[address] NOS 03/01/2015 SHARI SANCHEZ E906.4 NONVENOM ARTHROPOD BITE 04/21/2015 Ramiro Jacobs 276.50 VOLUME DEPLETION, UNSPECIFIED 04/21/2015 Ramiro Jacobs 787.03 VOMITING ALONE 04/21/2015 Ramiro Jacobs 789.00 ABDOMINAL PAIN, UNSPECIFIED SITE 04/21/2015 Ramiro Jacobs 789.06 ABDOMINAL PAIN, EPIGASTRIC 02/08/2018 INGE, MAHENDRA GLASS CUTTER HELPER Ot F17.210 NICOTINE DEPENDENCE, CIGARETTES, UNCOMPL 02/08/2018 INGE, MAHENDRA GLASS CUTTER HELPER Ot N63.20 UNSPECIFIED LUMP IN THE LEFT BREAST, UNS 02/08/2018 INGE, MAHENDRA GLASS CUTTER HELPER Ot N64.4 MASTODYNIA 02/08/2018 INGE, MAHENDRA GLASS CUTTER HELPER Ot Z80.8 FAMILY HISTORY OF MALIGNANT NEOPLASM OF 02/08/2018 INGE, MAHENDRA GLASS CUTTER HELPER Ot Z87.59 PERSONAL HISTORY OF COMP OF PREG, CHLDBR 02/08/2018 INGE, MAHENDRA GLASS CUTTER HELPER Ot Z98.51 TUBAL LIGATION STATUS 02/08/2018 NADIRA PRATT MD Ot F17.210 NICOTINE DEPENDENCE, CIGARETTES, UNCOMPL 02/08/2018 NADIRA PRATT MD Ot N63. 20 UNSPECIFIED LUMP IN THE LEFT BREAST, UNS 02/08/2018 NADIRA PRATT MD Ot N64. 4 MASTODYNIA 02/08/2018 NADIRA PRATT MD Ot Z85.828 PERSONAL HISTORY OF OTHER MALIGNANT NEOP 02/08/2018 NADIRA PRATT MD Ot Z87. 59 PERSONAL HISTORY OF COMP OF PREG, CHLDBR 02/08/2018 NADIRA PRATT MD Ot Z98. 51 TUBAL LIGATION STATUS 02/09/2018 INGE, MAHENDRA GLASS CUTTER HELPER Ot F17.210 NICOTINE DEPENDENCE, CIGARETTES, UNCOMPL 02/09/2018 INGE, MAHENDRA GLASS CUTTER HELPER Ot N63.20 UNSPECIFIED LUMP IN THE LEFT BREAST, UNS 02/09/2018 INGE, MAHENDRA GLASS CUTTER HELPER Ot N64.4 MASTODYNIA 02/09/2018 INGE, MAHENDRA GLASS CUTTER HELPER Ot Z80.8 FAMILY HISTORY OF MALIGNANT NEOPLASM OF 02/09/2018 INGE, MAHENDRA GLASS CUTTER HELPER Ot Z87.59 PERSONAL HISTORY OF COMP OF PREG, CHLDBR 02/09/2018 INGE, MAHENDRA GLASS CUTTER HELPER Ot Z98.51 TUBAL LIGATION STATUS 02/10/2018 NADIRA PRATT MD Ot F17.210 NICOTINE DEPENDENCE, CIGARETTES, UNCOMPL 02/10/2018 NADIRA PRATT MD Ot N63. 20 UNSPECIFIED LUMP IN THE LEFT BREAST, UNS 02/10/2018 NADIRA PRATT MD Ot N64. 4 MASTODYNIA 02/10/2018 NADIRA PRATT MD Ot Z85.828 PERSONAL HISTORY OF OTHER MALIGNANT NEOP 02/10/2018 TERENCE BALTAZAR, NADIRA Almonte Ot Z87. 59 PERSONAL HISTORY OF COMP OF PREG, CHLDBR 02/10/2018 NADIRA PRATT MD Ot Z98. 51 TUBAL LIGATION STATUS 02/10/2018 MARSH DO, ELÍAS D Ot N64. 4 MASTODYNIA 02/11/2018 MARSH DO, ELÍAS D Ot N63. 20 UNSPECIFIED LUMP IN THE LEFT BREAST, UNS 02/13/2018 INGE, MAHENDRA GLASS CUTTER HELPER Ot F17.210 NICOTINE DEPENDENCE, CIGARETTES, UNCOMPL 02/13/2018 INGE, MAHENDRA GLASS CUTTER HELPER Ot N63.20 UNSPECIFIED LUMP IN THE LEFT BREAST, UNS 02/13/2018 INGE, MAHENDRA GLASS CUTTER HELPER Ot N64.4 MASTODYNIA 02/13/2018 INGE, MAHENDRA GLASS CUTTER HELPER Ot Z80.8 FAMILY HISTORY OF MALIGNANT NEOPLASM OF 02/13/2018 INGE MAHENDRA GLASS CUTTER HELPER Ot Z87.59 PERSONAL HISTORY OF COMP OF PREG, CHLDBR 02/13/2018 INGE, MAHENDRA GLASS CUTTER HELPER Ot Z98.51 TUBAL LIGATION STATUS 02/13/2018 MARSH DO, LEÍAS D Ot N64. 4 MASTODYNIA 02/13/2018 MARSH DO, ELÍAS D Ot N63. 20 UNSPECIFIED LUMP IN THE LEFT BREAST, UNS 02/16/2018 MARSH DO, ELÍAS D Ot N63. 20 UNSPECIFIED LUMP IN THE LEFT BREAST, UNS 02/26/2018 MARSH DO, ELÍAS D Ot N63. 20 UNSPECIFIED LUMP IN THE LEFT BREAST, UNS 03/12/2018 MARSH DO, ELÍAS D Ot N64. 4 MASTODYNIA 03/12/2018 MARSH DO, ELÍAS D Ot N63. 20 UNSPECIFIED LUMP IN THE LEFT BREAST, UNS 03/12/2018 MARSH DO, ELÍAS D Ot N63. 20 UNSPECIFIED LUMP IN THE LEFT BREAST, UNS 03/16/2018 MARSH DO, ELÍAS D Ot N63. 20 UNSPECIFIED LUMP IN THE LEFT BREAST, UNS 03/27/2018 MARSH DO, ELÍAS D Ot N63. 20 UNSPECIFIED LUMP IN THE LEFT BREAST, UNS 06/02/2020 VANDANA VERAN, GERARDO W 558 .9 OTHER AND UNSPECIFIED NONINFECTIOUS GASTROENTERITIS AND COLITIS 06/02/2020 VANDANA VERANGERARDO W K52 .9 NONINFECTIVE GASTROENTERITIS AND COLITIS, UNSPECIFIED 06/05/2020 VANDANA VERANGERARDO W 693 .0 DERMATITIS DUE TO DRUGS AND MEDICINES TAKEN INTERNALLY 06/05/2020 GERARDO ROSS APRN W 995 .29 UNSPECIFIED ADVERSE EFFECT OF OTHER DRUG, MEDICINAL AND BIOLOGICAL SUBSTANCE 06/05/2020 VANDANA VERANGERARDO W L27 .0 GEN SKIN ERUPTION DUE TO DRUGS AND MEDS TAKEN INTERNALLY 06/05/2020 VANDANA VERANNADIRDeann W T37.3X5A ADVERSE EFFECT OF OTHER ANTIPROTOZOAL DRUGS, INIT ENCN TR 06/09/2020 MARSH DO, ELÍAS D Ot N64. 4 MASTODYNIA 06/09/2020 MARSH DO, ELÍAS D Ot N63. 20 UNSPECIFIED LUMP IN THE LEFT BREAST, UNS 06/09/2020 MARSH DO, ELÍAS D Ot N63. 20 UNSPECIFIED LUMP IN THE LEFT BREAST, UNS 06/09/2020 MARSH DO, ELÍAS D Ot N63. 20 UNSPECIFIED LUMP IN THE LEFT BREAST, UNS Procedures There is no data. Results Test Result Range Complete blood count (CBC) with automate d white blood cell (WBC) differential - 02/07/18 22:40 Blood leukocytes automated count (number/volume) 10.8 10*3/uL 4.3-11.0 Blood erythrocytes automated count (number/volume) 4.65 10*6/uL 4.35-5.85 Venous blood hemoglobin measurement (mass/volume) 14.4 g/dL 11.5-16.0 Blood hematocrit (volume fraction) 42 % 35-52 Automated erythrocyte mean corpuscular volume 90 [ foz_us] 80-99 Automated erythrocyte mean corpuscular h emoglobin (mass per erythrocyte) 31 pg 25-34 Automated erythrocyte mean corpuscular h emoglobin concentration measurement (mass/volume) 35 g/dL 32-36 Automated erythrocyte distribution width ratio 12. 8 % 10.0- 14.5 Automated blood platelet count (count/volume) 242 10*3/uL 130-400 Automated blood platelet mean volume measurement 10.4 [foz_us] 7.4-10.4 Automated blood neutrophils/100 leukocytes 44 % 42-75 Automated blood lymphocytes/100 leukocytes 43 % 12-44 Blood monocytes/100 leukocytes 9 % 0-12 Automated blood eosinophils/100 leukocytes 4 % 0-10 Automated blood basophils/100 leukocytes 1 % 0-10 Blood neutrophils automated count (number/volume) 4.8 10*3 1.8-7.8 Blood lymphocytes automated count (number/volume) 4.6 10*3 1.0-4.0 Blood monocytes automated count (number/volume) 1. 0 10*3 0.0-1.0 Automated eosinophil count 0.4 10*3/uL 0 .0-0.3 Automated blood basophil count (count/volume) 0.1 10*3/uL 0.0-0.1 Comprehensive metabolic panel - 02/07/18 22:40 Serum or plasma sodium measurement (moles/volume) 141 mmol/L 135-145 Serum or plasma potassium measurement (moles/volume) 3.7 mmol/L 3.6-5.0 Serum or plasma chloride measurement (moles/volume) 109 mmol/L 98-107 Carbon dioxide 23 mmol/L 21-32 Serum or plasma anion gap determination (moles/volume) 9 mmol/L 5-14 Serum or plasma urea nitrogen measurement (mass/volume ) 19 mg/dL 7-18 Serum or plasma creatinine measurement (mass/volume) 0.66 mg/dL 0.60-1.30 Serum or plasma urea nitrogen/creatinine mass ratio 29 NRG Serum or plasma creatinine measurement w ith calculation of estimated glomerular filtration rate > NRG Serum or plasma glucose measurement (mass/volume) 84 mg/dL 70-105 Serum or plasma calcium measurement (mass/volume) 9.2 mg/dL 8.5-10.1 Serum or plasma total bilirubin measurement (mass/volu me) 0.3 mg/dL 0.1-1.0 Serum or plasma alkaline phosphatase gaby surement (enzymatic activity/volume) 56 U/L 40-136 Serum or plasma aspartate aminotransfera se measurement (enzymatic activity/volume) 21 U/L 5-34 Serum or plasma alanine aminotransferase measurement (enzymatic activity/volume) 23 U/L 0-55 Serum or plasma protein measurement (mass/volume) 6.5 g/dL 6.4-8.2 Serum or plasma albumin measurement (mass/volume) 4.2 g/dL 3.2-4.5 Serum or plasma C reactive protein measu rement (mass/volume) - 02/07/18 22:40 Serum or plasma C reactive protein measurement (mass/v olume) 0.18 mg/dL 0.00-0.50 LIPASE - 05/24/20 16:57 LIPASE 20 U/L 7-60 AMYLASE - 05/24/20 16:57 AMYLASE 32 U/L 21-101 TSH - 05/24/20 16:57 TSH 0.66 mIU/L NRG Urinalysis - 06/02/20 08:42 Icotest N/A Negative Urine Volume Urine Volume Sufficient (10mL) Urine-Appearance Clear Clear Urine-Bilirubin Negative Negative Urine-Blood Negative Negative Urine-Color Yellow Colorless-Lt. [place]agon[place] ow Urine-Glucose Negative Negative Urine-Ketones Negative Negative Urine-Leukocytes Negative Negative Urine-Nitrite Negative Negative Urine-pH 5.5 5-8.5 Urine-Protein Negative Negative Urine-Specific Mystic 1.015 1.000-1 .030 Urine-WBC Nothing Seen on Microscopic Urobilinogen 0.2 E.U./dL 0.2-1.0 Comprehensive Metabolic Panel - 06/02/20 09:09 Albumin 4.2 g/dL 3.6-5.1 ALP 60 U/L 35-130 ALT 21 U/L 6-45 Anion Gap 15 6-14 AST 19 U/L 2-40 BUN 23 mg/dL 5-25 Calcium 8.6 mg/dL 8.3-10.4 Chloride 113 mmol/L 95-114 CO2 20 mEq/L 22-33 Creat 0.72 mg/dL 0.50-1.50 eGFR 86 mL/min/1.73m2 >59 Globulin 2.9 g/dL 2.3-3.5 Glucose 102 mg/dL 70-110 Osmo 301 280-295 Potassium 4.3 mmol/L 3.5-5.3 Sodium 144 mmol/L 134-148 TBil 0.2 mg/dL 0.2-1.2 TP 7.1 g/dL 6.0-8.3 Coronavirus SARS-CoV-2 SO 2018 0 07:55 Coronavirus Ab [Units/volume] in Serum NOT DETECTE D Not Detecte Encounters ACCT No. Visit Date/Time Discharge Status Pt. Type Provider Facility Loc./Unit Complaint [id number] 06/05/2020 16:20:00 06/05/2020 17:35 :00 DIS Outpatient VANDANA WELDING MACHINE OPERATOR PLASMA [facility], [facility] [id number] 06/02/2020 08:34:00 06/02/2020 10:50 :00 DIS Outpatient VANDANAGERARDO GALE APRN [facility] ER [id number] 06/01/2020 09:05:00 06/01/2020 23:59 :00 DIS Outpatient Jose Alfredo Kincaid [id number] 06/02/2020 08:59:41 Document Registration [id number] 04/21/2015 13:41:00 5 16:05:00 DIS Emergency Ramiro Jacobs V [facility] COL.ER [id number] 03/01/2015 07:24:00 5 07:50:00 DIS Emergency SHARI SANCHEZ V [facility] COL.ER [id number] 05/21/2018 10:06:00 018 23:59:59 CLS Preadmit ELÍAS MARSH DO [facility] RAD BREAST MASS [id number] 03/13/2018 15:58:00 018 23:59:59 CLS Outpatient MARSH ELÍAS ALTAMIRANO [facility] RAD N63.20 BREAST MASS LT [id number] 02/25/2018 09:26:00 018 23:59:59 CLS Outpatient ELÍAS MARSH DO [facility] RAD LT BREAST MASS [id number] 02/10/2018 08:26:00 018 23:59:59 CLS Outpatient ELÍAS MARSH DO [facility] RAD LT BREAST SWELLING [id number] 02/09/2018 15:14:00 018 23:59:59 CLS Outpatient MARSH ELÍAS ALTAMIRANO [facility] RAD LT BREAST PAIN [id number] 02/08/2018 17:14:00 018 18:45:00 DIS Emergency NADIRA PRATT MD [facility] ER L BREAST DISCOMFORT [id number] 02/07/2018 19:13:00 018 00:42:00 DIS Emergency MAHENDRA ALCAZARP [facility] ER BREAST PAIN [id number] 06/12/2020 10:50:00 P EN Preadmit ESTEBAN PHIPPS DO [facility] ENDO EPIGASTRIC PAIN, RECTAL BLEE DING [id number] 06/09/2020 05:40:[address] Outpatient ESTEBAN PHIPPS DO [facility] PREOP EGD/COLONOSCOPY [id number] 05/26/2020 11:00:00 05/26/2020 23:59: 59 CLS Outpatient ANGELITO VICENTE [facility] [id number] 05/24/2020 16:40:00 Document Registration
[2020-06-12] MEDS ORDERED: LACTATED RINGERS 1,000 ML IV STA (09:01)
[2020-06-12] MEDS ORDERED: LACTATED RINGERS 1,000 ML IV ONE (09:04)
[2020-06-12] MEDS ORDERED: HURRICAINE EXT TUBE (BENZOCAINE) XX PRN (09:15)
[2020-06-12] MEDS ORDERED: PROPOFOL INJECTION 50 ML IV ONE ×2 (09:37→10:17)
[2020-06-12] MEDS ORDERED: MIDAZOLAM 2 MG/2 ML (VERSED) VIAL ONE (09:38)
--- NOTE | 2020-06-12 09:54 | Progress Note-Pre Operative ---
Pre-Operative Progress Note H&P Reviewed The H&P was reviewed, patient examined and no changes noted. Time Seen by Provider: 09:52 Date H&P Reviewed: Jun 12, 2020 Time H&P Reviewed: 09:52 Pre-Operative Diagnosis: Epigastric Pain, Rectal bleed, Colitis ESTEBAN PHIPPS DO Jun 12, 2020 09:54
[2020-06-12] MEDS ORDERED: KETAMINE/NaCl 50 MG/5 ML SYRINGE (ED ONLY) ONE (09:59)
--- NOTE | 2020-06-12 10:35 | Progress Note-Post Operative ---
Post-Operative Progess Note Surgeon (s)/Dining Server (s) Surgeon ESTEBAN PHIPPS DO Dining Server: Jayesh Cook MSIII Pre-Operative Diagnosis Epigastric Pain, Rectal bleed, Colitis Post-Operative Diagnosis Gastritis Hiatal Hernia Polyp Int hemorrhoids Procedure & Operative Findings Date of Procedure 06/12/20 Procedure Performed/Findings EGD with bx Colon with hot bx Anesthesia Type IV sedation by RFID TECHNICIAN Estimated Blood Loss Estimated blood loss (mL): scant Specimens/Packing Specimens Removed antral bx body of stomach bx GE jxn bx Cecal polyp ESTEBAN PHIPPS DO Jun 12, 2020 10:35
--- NOTE | 2020-06-12 10:36 | Endoscopy Discharge Instruct ---
Endo Procedure/Findings Findings 1.: Gastritis 2.: Hiatal Hernia 3.: Polyp 4.: Internal Hemorrhoids Discharge Instructions - Activity: You might feel a little sleepy until tomorrow. This is due to the medicine you received to relax you. Until tomorrow, you should: NOT drive a car, operate machinery or power tools. NOT drink any alcoholic beverages. NOT make any important decisions or sign importortant papers. Do not return to work until tomorrow, unless otherwise instructed. Resume previous activities tomorrow. Diet: Start by taking liquids. If you tolerate liquids, advance to solid food. make an appointment for one week 1.: Colonscopy in 5 years, EGD in 3 years Notify Physician - If you experience excessive bleeding, unusual abdominal pain, fever, or chest pain, contact your doctor immediately. ESTEBAN PHIPPS DO Jun 12, 2020 10:36
--- NOTE | 2020-06-12 12:07 | Anesthesia-General Post-Op ---
MAC Patient Condition Mental Status/LOC: Same as Preop Cardiovascular: Satisfactory Nausea/Vomiting: Absent Respiratory: Satisfactory Pain: Controlled Complications: Absent Post Op Complications Complications None Follow Up Care/Instructions Patient Instructions None needed. Anesthesiology Discharge Order Discharge Order Patient is doing well, no complaints, stable vital signs, no apparent adverse anesthesia problems. No complications reported per nursing. BREANNA MILTON CRNA Jun 12, 2020 12:07
--- NOTE | 2020-06-13 07:07 | OPERATIVE REPORT ---
DATE OF SERVICE: PREOPERATIVE DIAGNOSES: Epigastric pain, rectal bleed, colitis. POSTOPERATIVE DIAGNOSES: Gastritis, hiatal hernia, colon polyps and internal hemorrhoids. PROCEDURES: 1. EGD with biopsy. 2. Colonoscopy with hot biopsy. SURGEON: Michi Rodriguez DO OLEOMARGARINE MAKER: Jayesh Cook, MS3. SPECIMEN: Biopsy from the antrum, biopsy of body of the stomach, biopsy of the GE junction and biopsy of cecal polyp. BLOOD LOSS: Scant. FLUIDS: Per anesthesia. POSTOPERATIVE CONDITION: Stable. INDICATION FOR PROCEDURE: The patient is a 50-year-old female, who has been having some epigastric pain, rectal bleeding and was told she had some colitis, needed a workup. FINDINGS: The patient had some mild gastritis, very small hiatal hernia and she had a polyp in the cecum and then some small internal hemorrhoids. PROCEDURE NOTE: After informed consent was obtained, the patient was brought to the endoscopy suite, placed in bed in left lateral decubitus position. She was administered IV sedation by the MOBILE EQUIPMENT OPERATOR, who then monitored her vitals the entire time, heart rate, blood pressure and pulse ox. We started with the EGD, placing scope down the mouth through the esophagus and stomach and into the stomach. On the way down, noted some mild changes of the GE junction, pushed past this into the stomach. Stomach had some mild gastritis, pushed into the duodenum. Duodenum looked fine, took a picture. Pulled back into the antrum, did a biopsy. I retroflexed the scope, saw a small hiatal hernia, took a picture of this and then did a biopsy of the body of stomach, pulled the scope into the GE junction, did a biopsy here and then placed the scope back into the stomach, suctioned out the air and then pulled the scope up the esophagus and out the mouth. Switched camera, switched gloves, went down below, started the colonoscopy, pushed in to about 160 cm, able to get all the way to the cecum, took a picture of appendiceal orifice, noted the ileocecal valve and then in the cecum, saw small flat polyp, I elected do a hot biopsy of this, able to remove it in 2 bites and then slowly withdrew the scope insufflating to look circumferential at the sorensen looking the cecum, up the ascending colon to the hepatic flexure, then down the transverse colon, the splenic flexure, into the descending colon down in the sigmoid and finally into the rectum, retroflexed in the rectal vault, saw some pretty big hemorrhoids, probably grade II, took a picture and then pulled the scope out. The patient tolerated the procedure, recovered in endoscopy suite. Job ID: [id number] DocumentID: [id number] Dictated Date: 06/12/2020 19:19:33 Transaction Processor Date: 06/13/2020 05:53:06 Dictated By: DO DHRUV TAYLOR
== END 2020-06-12 11:15 | disposition home or self-care (01) ==
LOC: ENDO 08:47
PROVIDERS: ATTEND Surgery
DX: K29.70 Gastritis, unspecified, without bleeding (principal); D12.0 Benign neoplasm of cecum; K44.9 Diaphragmatic hernia without obstruction or gangrene; K64.8 Other hemorrhoids; K21.0 Gastro-esophageal reflux disease with esophagitis; F41.9 Anxiety disorder, unspecified; K31.9 Disease of stomach and duodenum, unspecified; F17.210 Nicotine dependence, cigarettes, uncomplicated; Z85.820 Personal history of malignant melanoma of skin

== ENCOUNTER → 2020-06-28 | Day surgery (SDC) | payer BC ==
[~2020-06-28] MED LIST changes: +BUP/EPI 0.5% 1:200,000 (MARCAINE) 10ML VIAL IJ ONE; +FAMOTIDINE 20MG/2ML IV (PEPCID) ONE; +GLYCOPYRROLATE 0.2 MG/ML (ROBINUL) 2 ML VIAL ONE; +HYDROcodone/APAP 5 MG/325 MG (LORTAB) TAB ONE; +IOPAMIDOL 61% 30 ML (ISOVUE 300) VIAL ONE; +LACTATED RINGERS 1,000 ML IV ONE; +LIDOCAINE PF 2% 5 ML (XYLOCAINE) VIAL ONE; +MIDAZOLAM 2 MG/2 ML (VERSED) VIAL ONE; +NEOSTIGMINE 3 MG/3 ML VIAL ONE; +ONDANSETRON 4 MG/2 ML (SDV) Z0FRAN ONE; +ROCURONIUM 10 MG/ML 5 ML SYRINGE IV ONE; +SEVOFLURANE (ULTANE) 15 ML INHAL SOLN ONE; +SUCCINYLCHOLINE INJ 100 MG/5 ML SYR ONE; +ceFAZolin 2 GM IV Premixed 50 ML ONE; +fentaNYL INJECTION 100 MCG/2 ML AMP ONE; +morphine INJ 10 MG/ML 1ML (SYR OR VIAL) ONE; +proPOfol 200 MG/20 ML (DIPRIVAN) VIAL IV ONE
--- NOTE | 2020-06-29 08:15 | Diagnostic Imaging Report ---
INDICATION: Cholecystectomy Operative cholangiogram performed in the routine fashion with injection via the cystic duct stump and surgery. Contrast fills the biliary tree. There are no filling defects in the common duct. Contrast passes into the duodenum without obstruction. 11 seconds of fluoroscopy time was used. IMPRESSION: Unremarkable operative cholangiogram. Dictated by: Dictated on workstation # [id number]
--- NOTE | 2020-06-29 09:10 | Progress Note-Post Operative ---
Post-Operative Progess Note Surgeon (s)/Gutter Installer (s) Surgeon ESTEBAN PHIPPS DO Gutter Installer: Ernestine Pre-Operative Diagnosis Cholelithiasis/Cholecystitis Post-Operative Diagnosis Same Procedure & Operative Findings Date of Procedure 06/29/20 Procedure Performed/Findings PROCEDURE: Laparoscopic cholecystectomy with intraoperative cholangiogram. COMPLICATIONS: None. PROCEDURE: The patient was taken to the operating suite and was prepped and draped in sterile fashion. A surgical pause was performed. Just superior to the umbilicus, a 12 mm incision was made. Dissection was taken down to the fascia, which was then scored and grasped with a Kleber and the abdomen was then entered. A 0 Vicryl suture was placed in a apqkbz-ul-xbvqd fashion and a Clement trocar was placed and secured. Pneumoperitoneum was achieved. A 5mm trochar place in the subxyphoid and 2 in the right upper quadrant. The gallbladder was then grasped and elevated. The cystic duct, and cystic artery were then dissected out. Clip was placed on the distal portion of the cystic duct which was then partially transected. An arrow catheter was inserted into the duct. The cholangiogram was then performed. No filing defects and contrast made its way into the duodenum. Catheter removed. Clips were placed on proximal portion of the cystic duct and then the duct was then transected. Clips were placed along the proximal and distal portion of the cystic artery which was then transected. Hook cautery was used to dissect the gallbladder from the gallbladder fossa achieving hemostasis. The gallbladder was placed in an Endobag and removed through the 12 mm trocar site. The abdomen was then reinspected. Copious amounts of irrigation were used to irrigate the abdomen and there were no signs of active bleeding. Hemostasis had been achieved. The 12 mm fascial defect was then closed with 0 Vicryl suture that had been placed in a omimpx-ry-qbdhn fashion. The abdomen was then desufflated, the trocars were removed. The abdomen was then washed and dried. The skin was then closed using 4-0 Monocryl in a subcuticular fashion. The abdomen was washed and dried and Skin Affix was place over incisions. Patient tolerated the procedure well without any complications and was taken to the recovery room in stable condition. Anesthesia Type GET Estimated Blood Loss Estimated blood loss (mL): scant Specimens/Packing Specimens Removed GB and contents ESTEBAN PHIPPS DO Jun 29, 2020 09:10
== END | disposition home or self-care (01) ==
LOC: SDC 08:50
PROVIDERS: ATTEND Surgery
DX: K80.10 Calculus of gallbladder with chronic cholecystitis without obstruction (principal); Z11.2 Encounter for screening for other bacterial diseases; Z85.820 Personal history of malignant melanoma of skin; Z88.1 Allergy status to other antibiotic agents; F17.210 Nicotine dependence, cigarettes, uncomplicated; K64.0 First degree hemorrhoids; K44.9 Diaphragmatic hernia without obstruction or gangrene; K21.0 Gastro-esophageal reflux disease with esophagitis; F41.9 Anxiety disorder, unspecified
CPT/HCPCS: 76000; 87081

== ENCOUNTER → 2020-10-02 | Outpatient (CLI) | payer BC ==
[~2020-10-02] MED LIST changes: -BUP/EPI 0.5% 1:200,000 (MARCAINE) 10ML VIAL IJ ONE; -FAMOTIDINE 20MG/2ML IV (PEPCID) ONE; -GLYCOPYRROLATE 0.2 MG/ML (ROBINUL) 2 ML VIAL ONE; -HYDROcodone/APAP 5 MG/325 MG (LORTAB) TAB ONE; -IOPAMIDOL 61% 30 ML (ISOVUE 300) VIAL ONE; -LACTATED RINGERS 1,000 ML IV ONE; -LIDOCAINE PF 2% 5 ML (XYLOCAINE) VIAL ONE; -MIDAZOLAM 2 MG/2 ML (VERSED) VIAL ONE; -NEOSTIGMINE 3 MG/3 ML VIAL ONE; -ONDANSETRON 4 MG/2 ML (SDV) Z0FRAN ONE; -PANT40TA3 PO; +PANT40TA52 PO; -ROCURONIUM 10 MG/ML 5 ML SYRINGE IV ONE; -SEVOFLURANE (ULTANE) 15 ML INHAL SOLN ONE; -SUCCINYLCHOLINE INJ 100 MG/5 ML SYR ONE; -ceFAZolin 2 GM IV Premixed 50 ML ONE; -fentaNYL INJECTION 100 MCG/2 ML AMP ONE; -morphine INJ 10 MG/ML 1ML (SYR OR VIAL) ONE; -proPOfol 200 MG/20 ML (DIPRIVAN) VIAL IV ONE
--- NOTE | 2020-10-03 09:16 | Diagnostic Imaging Report ---
INDICATION: Screening. TECHNIQUE: The current study was also evaluated with a Computer Aided Detection (CAD) system. 3D Tomographic imaging was also performed. COMPARISON: 02/10/2018. FINDINGS: There are scattered fibroglandular densities bilaterally. There is no dominant mass, spiculated lesion, or suspicious calcification identified. There are a few benign-type calcinations. The skin, nipples, and axillae are unremarkable. IMPRESSION: Benign findings as above. ACR BI-RADS Category 2: Benign findings. Result letter will be mailed to the patient. Note: At least 10% of breast cancer is not imaged by mammography. Dictated by: Dictated on workstation # [id number]
== END ==
LOC: RAD 15:15
PROVIDERS: ATTEND Nurse Practitioner Family
DX: Z12.31 Encounter for screening mammogram for malignant neoplasm of breast (principal)
CPT/HCPCS: 77063; 77067

== ENCOUNTER 2021-06-21 18:38 | Emergency (ER) | payer SELFPAY ==
[~2021-06-21] VITALS: Ht 167.7 cm; Wt 75.0 kg
--- NOTE | 2021-06-21 19:18 | ED Lower Extremity ---
General Stated Complaint: TESTED POSITIVE 1.5 WEEK AGO / L FOOT INJ Source: patient History of Present Illness Date Seen by Provider: Jun 21, 2021 Time Seen by Provider: 19:05 Initial Comments PT ARRIVES VIA POV FROM HOME STATES APPROXIMATELY AN HOUR AGO, SHE WAS OUTSIDE AND STEPPED WRONG AND TWISTED HER LEFT ANKLE DID NOT FALL TO GROUND NO OTHER INJURIES FROM THE INCIDENT NO PARESTHESIAS OR MOTOR DEFICITS NO PRIOR INJURY TO THIS FOOT OR ANKLE PT TOOK TYLENOL PRIOR TO ARRIVAL WITHOUT RELIEF PT TESTED + FOR COVID-19 1 1/2 WEEKS AGO, NO TREATMENT OR HOSPITALIZATION PT STATES SHE NO LONGER HAS ANY SYMPTOMS FROM THAT. PCP: MEHNAZ Allergies and Home Medications Allergies Coded Allergies: metronidazole (Verified Allergy, Unknown, Rash, 06/22/20) Home Medications Naproxen 500 Mg Tablet.dr, 500 MG PO BID Prescribed by: TAB COONEY on 06/21/212010 Pantoprazole Sodium 40 Mg Tablet.dr, 40 MG PO DAILY, (Reported) Patient Home Medication List Home Medication List Reviewed: Yes Review of Systems Constitutional: no symptoms reported Musculoskeletal: see HPI Skin: no symptoms reported Psychiatric/Neurological: No Symptoms Reported Past Nmacgqu-Nmwppx-Hvkacw Hx Seasonal Allergies Seasonal Allergies: Yes Past Medical History Surgeries: Yes (MELANOMA-BETWEEN BREAST, CS X2) Appendectomy, Section, Hysterectomy, Tubal Ligation Respiratory: No Cardiac: No Neurological: No ACCOUNTS PAYABLE PAYROLL COORDINATOR History: Hysterectomy, Tubal Ligation Sexually Transmitted Disease: No HIV/AIDS: No Genitourinary: No Gastrointestinal: Yes Gastroesophageal Reflux, Gall Bladder Disease Musculoskeletal: No Endocrine: No HEENT: Yes (GLASSES) Loss of Vision: Denies Hearing Impairment: Denies Cancer: Yes Skin, Melanoma Did You Recieve Any Treatments: Yes What Type of Treatment Did You: Surgical Intervention Psychosocial: Yes Anxiety Integumentary: Yes Eczema, Psoriasis Blood Disorders: No Adverse Reaction/Blood Tranf: No (N/A) Family Medical History Cancer Physical Exam Vital Signs Vital Signs - First Documented 06/21/21 19:05 Temp 36.4 Pulse 91 Resp 18 B/P (MAP) 109/75 (86) Pulse Ox 98 O2 Delivery Room Air Capillary Refill : Height, Weight, BMI Height: 5'6.00" Weight: 160lbs. oz. 72.864912wa; 26.66 BMI Method:Stated General Appearance: WD/WN, no apparent distress Ankles: left ankle other (TENDERNESS, SWELLLING AND EARLY BRUISING ALL AROUND LEFT ANKLE. DISTAL MOTOR/SENSORY/VASCULAR INTACT. BUT VERY LIMITED ROM IN ALL DIRECTIONS DUE TO PAIN ) Neurologic/Tendon: normal sensation, normal motor functions, normal tendon functions Neurologic/Psychiatric: no motor/sensory deficits, alert, normal mood/affect, oriented x 3 Skin: normal color, warm/dry, ecchymosis Procedures/Interventions Splinting and Joint Reduction : Elías wrap: Yes Immobilizers: Step Light Walker s/m/lg Progress/Results/Core Measures Results/Orders My Orders Orders - TAB COONEY DO Foot, Left, 3 Views (06/21/21 19:13) Ankle, Left, 3 Views (06/21/21 19:13) Elías Bandage (06/21/21 20:09) Steplite (06/21/21 20:09) Rx-Naproxen (Rx-Naprosyn) (06/21/21 20:15) Medications Given in ED Current Medications Medications Dose Ordered Sig/Gentry Route Start Time Stop Time Status Last Admin Dose Admin Naproxen 250 mg ONCE ONCE PO 06/21/21 20:15 06/21/21 20:16 DC 06/21/21 20:17 250 MG Vital Signs/I&O 06/21/21 06/21/21 19:05 20:25 Temp 36.4 Pulse 91 81 Resp 18 18 B/P (MAP) 109/75 (86) 109/75 Pulse Ox 98 97 O2 Delivery Room Air Room Air Progress Progress Note : Progress Note PLACED IN ISOLATION ROOM PPE WORN AT ALL TIMES Diagnostic Imaging Comments XRAYS LEFT FOOT--PER RADIOLOGIST REPORTS AT 2004 FINDINGS: Tarsometatarsal joints appear normal. An ossicle lateral to the base of the cuboid is present. There is some swelling about the ankle laterally and a well-corticated old appearing bony density adjacent to the distal tip of the fibula. An acute injury is not identified. IMPRESSION: Swelling and chronic areas of calcifications. No fracture or acute bony abnormality appreciable. XRAYS LEFT ANKLE--PER RADIOLOGIST REPORT AT 2007 FINDINGS: There is a well-corticated old bony density distal to the fibula. There is overlying lateral soft tissue swelling but an acute fracture is not identified. No widening of the mortise. Ossicle or soft tissue calcification proximal to the base of the 5th metatarsal present. The 5th metatarsal appears intact. IMPRESSION: Swelling laterally but no acute bony injury identified. Reviewed: Reviewed by Me Departure Impression Primary Impression: Left ankle sprain Disposition: HOME, SELF-CARE Condition: Stable Departure-Patient Inst. Decision time for Depature: 20:08 Referrals: [facility] (PCP/Family) Primary Care Physician Patient Instructions: Ankle Sprain (DC), How to Use an Elastic Bandage, Walking Boot Add. Discharge Instructions: ICE TO AREA AT 20 MINUTE INTERVALS ELÍAS WRAP AND BOOT AT ALL TIMES ELEVATE FOOT MUCH POSSIBLE FOLLOW UP WITH [facility] IN 1 WEEK FOR FURTHER CARE Scripts Naproxen (Naproxen) 500 Mg Tablet. 500 MG PO BID, #20 TAB Prov: TAB COONEY DO 06/21/21 Work/School Note: Work Release Form Date Seen in the Emergency Department: Jun 21, 2021 Restrictions: Need Release from Doctor TAB COONEY DO Jun 21, 2021 19:18
--- NOTE | 2021-06-21 20:04 | Diagnostic Imaging Report ---
INDICATION: Pain. FINDINGS: Tarsometatarsal joints appear normal. An ossicle lateral to the base of the cuboid is present. There is some swelling about the ankle laterally and a well-corticated old appearing bony density adjacent to the distal tip of the fibula. An acute injury is not identified. IMPRESSION: Swelling and chronic areas of calcifications. No fracture or acute bony abnormality appreciable. Dictated by: Dictated on workstation # [id number]
--- NOTE | 2021-06-21 20:05 | Diagnostic Imaging Report ---
INDICATION: Pain. EXAMINATION: Three view left ankle was performed. FINDINGS: There is a well-corticated old bony density distal to the fibula. There is overlying lateral soft tissue swelling but an acute fracture is not identified. No widening of the mortise. Ossicle or soft tissue calcification proximal to the base of the 5th metatarsal present. The 5th metatarsal appears intact. IMPRESSION: Swelling laterally but no acute bony injury identified. Dictated by: Dictated on workstation # [id number]
[2021-06-21] MEDS ORDERED: NAPR500T8 PO (20:11)
[2021-06-21] MEDS ORDERED: RX-NAPROXEN (NAPROSYN) 250 MG TAB PPK#4 PO ONE (20:15)
[2021-06-21 20:25] VITALS: BP 109/75
--- OUTSIDE RECORDS SUMMARY | 2021-06-22 09:28 | XMS REPORT | Clinical Summary ---
Author Author [facility] Organization [facility] Address Unknown Phone Unavailable Care Team Providers Care Database Security Expert Name Role Phone PCP Unavailable Allergies Not on File Medications Not on file Active Problems Not on file Immunizations Name Administration Dates Next Due Pneumococcal 05/11/2012 Polysaccharide (23-valent) Social History Date Tobacco Use Types Packs/Day Years Used Never Assessed Sex Assigned at Date Recorded Not on file Last Filed Vital Signs Not on file Plan of Treatment Health Maintenance Due Date Last Done Comments COVID-19 Vaccine (1) 1983 Hepatitis C Screening 1989 DTaP,Tdap,and Td Vaccines 1990 (1 - Tdap) MMR Vaccines-Adult 1990 Cervical Cancer Screening 1992 Breast Cancer 2021 Screening-Mammogram Colon Cancer Screening 2021 Zoster Vaccine (1 of 2) 2021 Influenza Vaccine (#1) 2021 Pneumo-Vaccine: 65+Yrs (1 2036 05/11/2012 of 1 - PPSV23) Pneumo-Vaccine: Peds (0-5 Aged Out 05/11/2012 No l onger eligible based on patient's age to Yrs) & At-Risk Patients complete this topic (6-64 Yrs) HIB Vaccines Aged Out No longer eligible based on patient's age to complete this topic IPV Vaccines Aged Out No longer eligible based on patient's age to complete this topic Meningococcal Vaccine Aged Out No longer eligib le based on patient's age to complete this topic Rotavirus Vaccines Aged Out No longer eligible based on patient's age to complete this topic Results Not on filefrom Last 3 Months
== END 2021-06-21 20:26 | disposition home or self-care (01) ==
LOC: EDUNIT# 18:38 → ER 18:41
DX: S93.402A Sprain of unspecified ligament of left ankle, initial encounter (principal); K21.9 Gastro-esophageal reflux disease without esophagitis; Z86.16 Personal history of COVID-19; Z79.899 Other long term (current) drug therapy; X50.1XXA Overexertion from prolonged static or awkward postures, initial encounter
CPT/HCPCS: 73610; 73630